=== PATIENT | male | born 1950 | race American Indian/Alaskan Native ===

== ENCOUNTER 2017-10-25 06:03 | Day surgery (SDC) | payer OTHER ==
[~2017-10-25 06:03] MED LIST: MARCAINE 0.25% INFILTRATI ONE; NACL 0.9% 1000 ML 1,000 ML IV SCH; NACL 0.9% IR ONE; PEPCID PO NR; VERSED IV NR
[2017-10-25] MEDS ORDERED: NACL BACTERIOSTATIC INFILTRATI ONE (06:45)
--- NOTE | 2017-10-25 06:51 | Anesthesia Consultation ---
Anesthesia Consult and Med Hx Date of service: 10/25/17 - Airway Anesthetic Teeth Evaluation: Good ROM Head & Neck: Adequate Mental/Hyoid Distance: Adequate Mallampati Class: Class II Intubation Access Assessment: Probably Good - Pulmonary Exam CTA: Yes - Cardiac Exam Cardiac Exam: RRR - Pre-Operative Health Status ASA Pre-Surgery Classification: ASA3 Proposed Anesthetic Plan: General - Pulmonary Hx Smoking: Yes (OFF AND ON FOR 10YEARS, QUIT IN 2014) Hx Sleep Apnea: No (Not diagnosed but Pt snores heavily) - Cardiovascular System Hx Hypertension: Yes (SINCE 2000) - Central Nervous System Hx Psychiatric Problems: No - Endocrine Hx Insulin Dependent Diabetes: Yes - Other Systems Hx Alcohol Use: No Hx Substance Use: No Hx Cancer: No
[2017-10-25] MEDS ORDERED: PERCOCET 5/325 PO PRN (06:52)
[2017-10-25] MEDS ORDERED: ZOFRAN IV PRN (06:52)
[2017-10-25] MEDS ORDERED: MORPHINE IV PRN (06:52)
--- NOTE | 2017-10-25 06:52 | Anesthesia Day of Surgery ---
Anesthesia Day of Surgery - Day of Surgery Patient Examined: Yes Patient H&P Reviewed: Yes Patient is NPO: Yes
[2017-10-25] MEDS ORDERED: MARCAINE 0.25% INFILTRATI ONE ×2 (06:59→07:28)
[2017-10-25] MEDS ORDERED: HEPARIN SUB-Q NR (07:00)
[2017-10-25] MEDS ORDERED: ANCEF/STERILE WATER 2 GM/20 ML IV NR (07:00)
[2017-10-25] MEDS ORDERED: QUELICIN ONE (07:26)
[2017-10-25] MEDS ORDERED: DIPRIVAN 10 MG/ML IV ONE (07:26)
[2017-10-25] MEDS ORDERED: NACL 0.9% IR ONE (07:28)
[2017-10-25] MEDS ORDERED: XYLOCAINE MPF 2% ONE (07:28)
[2017-10-25 07:29] LABS: BUN/Creatinine Ratio 20; Blood Urea Nitrogen 16 mg/dL (9-20); Calcium 8.6 mg/dL (8.4-10.2); Hemolysis Index 4
[2017-10-25] MEDS ORDERED: DILAUDID ONE (07:29)
[2017-10-25] MEDS ORDERED: ZOFRAN ONE (08:08)
--- NOTE | 2017-10-25 08:16 | Post Operative Note ---
Pre-op diagnosis: Right perianal mass Post-op diagnosis: same Procedure: Excision of right perianal mass Anesthesia: other (Gen by LMA) Surgeon: FREDY MICHAELS Estimated blood loss: minimal Pathology: list (Right perianal mass) Specimen disposition: to lab Condition: stable Disposition: PACU
--- NOTE | 2017-10-25 08:20 | Post Anesthesia Evaluation ---
- Post Anesthesia Evaluation Patient Participated: Yes Airway Patent: Yes Stable Respiratory Function: Yes Nausea/Vomiting: No Temp > 96.8F: Yes Pain Manageable: Yes Adequeate Hydration: Yes Anesthesia Complications: No
[2017-10-25 09:08] VITALS: BP 114/86
--- NOTE | 2017-10-28 12:39 | Operative Report ---
Operative Report Operative Report: Date of operation: 10/25/2017 Preoperative diagnosis: Right perianal mass, 1.3 cm Postoperative diagnosis: Same Operation: Excision of right perianal mass Surgeon: Eric Hernández M.D. Findings: The mass was a solid nodule and was not a thrombosed hemorrhoid. Anesthesia: Gen. by LMA EBL: Minimal There were no complications, drains or cultures. The excised nodule was sent for histopathologic examination. Description of procedure: Patient was placed supine on the operating room table. After adequate general anesthesia was obtained by LMA, he was repositioned to a dorsal lithotomy position. Genitalia, scrotum, perianal area and buttocks were prepped and draped. The right perianal mass was excised via an ellipse and the wound was left open because it was so close to the anal canal. Hemostasis of the small amount of oozing was controlled with the Bovie. The wound was packed open with Vaseline gauze followed by dry 4 x 4's, tape and mesh underwear. Patient tolerated the procedure well. He was taken to PACU in stable condition.
== END 2017-10-25 10:12 | disposition home or self-care (01) ==
LOC: OR 06:03
PROVIDERS: ATTEND Surgery
DX: K62.89 Other specified diseases of anus and rectum (principal); I10 Essential (primary) hypertension; E11.9 Type 2 diabetes mellitus without complications; Z87.891 Personal history of nicotine dependence
CPT/HCPCS: 36415; 80048; 82962; 88305; 88313; 88342; J0330; J0690; J1170; J1644; J2250; J2405; J2704; J7030